=== PATIENT | female | born 1970 | race Caucasian/White ===

== ENCOUNTER → 2017-04-09 | Outpatient (CLI) | payer BC ==
[~2017-04-09] MED LIST: DCS100C PO; FRS325T PO; HYDR1TAB75 PO; IBP800T PO; LORA0.5T PO; MDR10T PO; SPRINTEC PO
== END ==
LOC: RAD 13:46
PROVIDERS: ATTEND Nurse Practitioner Family
DX: Z12.31 Encounter for screening mammogram for malignant neoplasm of breast (principal)
CPT/HCPCS: 77067

== ENCOUNTER → 2017-04-19 | Outpatient (CLI) | payer BC ==
--- NOTE | 2017-04-19 09:13 | Diagnostic Imaging Report ---
PROCEDURE: MRI right joint lower extremity without contrast. TECHNIQUE: Multiplanar, multisequence non contrast-enhanced MRI of the right lower extremity was accomplished. INDICATION: Right knee pain. FINDINGS: There is a small joint effusion. There is some fluid signal along the superficial infrapatellar bursa could relate to mild bursitis. The extensor mechanism appears intact. The ACL demonstrates mild thickening superiorly probably sequela of an old tear. No full-thickness or retracted tear. The PCL is intact. There is a complex tear involving the body of the medial meniscus extending to the posterior horn. There is a gap in the meniscus material along the body of the meniscus measuring 4 mm from the fibers retraction. The lateral meniscus appears intact. There is a suggestion of loose bodies seen in the posterior aspect of the knee joint up to 5 mm in size. This is located along the posterior medial aspect of the PCL of the joint line level. The MCL and the lateral collateral ligament complex appear intact. There is no significant marrow signal abnormality. There is generalized mild cartilage thinning in the medial compartment less than 50%. The cartilage in the lateral compartment appears intact. There is a significant cartilage thinning in the lower central aspect of the patella with an area measuring 1.5 cm craniocaudally and 0.6 cm transverse dimension with nearly complete loss of cartilage. There is a small Stanley's cyst. IMPRESSION: 1. There is a significant cartilage thinning and cartilage loss in the central lower aspect of the patella. This could be at least in part secondary to old injury. 2. There are loose bodies up to 5 mm in size abutting the posterior medial aspect of the PCL insertion. 3. Complex medial meniscus tear. Dictated by: Dictated on workstation # [id number]
== END ==
LOC: RAD 07:45
PROVIDERS: ATTEND Nurse Practitioner
DX: S83.231A Complex tear of medial meniscus, current injury, right knee, initial encounter (principal); M71.21 Synovial cyst of popliteal space [Baker], right knee; M23.41 Loose body in knee, right knee; X58.XXXA Exposure to other specified factors, initial encounter; Y99.8 Other external cause status
CPT/HCPCS: 73721

== ENCOUNTER → 2018-04-04 | Outpatient (CLI) | payer BC ==
--- NOTE | 2018-04-04 12:35 | Diagnostic Imaging Report ---
EXAMINATION: MRI left foot without contrast. DATE: April 04, 2018. INDICATION: 47-year-old female, lateral left foot pain. COMPARISON: None. TECHNIQUE: Multiple noncontrast MRI sequences of the left foot were obtained. FINDINGS: The visualized portions of the peroneal tendons are intact. Visualized portions of the posterior flexor tendons are intact. The visualized anterior extensor tendons are intact. There is a ganglion cyst near the distal tibialis anterior tendon measuring approximately 11 x 6 x 10 mm in size. The Lisfranc ligament proper is intact. The visualized portions of the plantar fascia are intact. There is no joint effusion. The bone marrow signal is unremarkable. Specifically, there is no acute fracture, bone contusion, stress reaction, or evidence of osteonecrosis. There is nonspecific lateral and dorsal subcutaneous edema along the length of the fifth metatarsal and fifth digit phalanges. There is no focal fluid collection. IMPRESSION: 1. Nonspecific dorsal and lateral subcutaneous edema along the length of the fifth digit phalanges and fifth metatarsal which is in the region of the marker denoting area of focal patient concern. No well marginated focal fluid collection. 2. No acute fracture, bone contusion, or evidence of stress reaction. 3. Intact visualized tendons. 4. Ganglion cyst near the distal anterior tibialis tendon measuring 11 x 6 x 10 mm in size. 5. No joint effusion. Dictated by: Dictated on workstation # [id number]
== END ==
LOC: RAD 09:19
PROVIDERS: ATTEND Podiatrist
DX: S92.352A Displaced fracture of fifth metatarsal bone, left foot, initial encounter for closed fracture (principal); M67.472 Ganglion, left ankle and foot; R60.0 Localized edema

== ENCOUNTER → 2018-04-18 | Outpatient (CLI) | payer BC ==
--- NOTE | 2018-04-18 09:22 | Diagnostic Imaging Report ---
Indication: Routine screening. Comparison is made with prior exam from 04/09/2017 and 05/08/2014. 2-D and 3-D bilateral screening mammography was performed with CAD. Scattered fibronodular densities are identified bilaterally. The parenchymal pattern is stable. No dominant mass or malignant appearing microcalcifications are seen. Axillae are unremarkable. Impression: BI-RADS category one No mammographic features suspicious for malignancy are identified. ACR BI-RADS Category 1: Negative. Result letter will be mailed to the patient. Note: At least 10% of breast cancer is not imaged by mammography. Dictated by: Dictated on workstation # [id number]
== END ==
LOC: RAD 07:38
PROVIDERS: ATTEND Nurse Practitioner Primary Care
DX: Z12.31 Encounter for screening mammogram for malignant neoplasm of breast (principal)
CPT/HCPCS: 77067

== ENCOUNTER 2018-12-22 08:44 | Outpatient (CLI) | payer BC ==
[~2018-12-22] VITALS: Ht 160 cm; Wt 81.6 kg
== END 2018-12-22 10:15 | disposition home or self-care (01) ==
LOC: PREOP 08:44
PROVIDERS: ATTEND Surgery
DX: Z01.818 Encounter for other preprocedural examination (principal)

== ENCOUNTER 2018-12-30 10:57 | Day surgery (SDC) | payer BC ==
[~2018-12-30] VITALS: Ht 160 cm; Wt 81.6 kg
[2018-12-30] MEDS ORDERED: NS IV 500 ML 500 ML ONE (11:00)
[2018-12-30] MEDS ORDERED: MIDAZOLAM 2 MG/2 ML (VERSED) VIAL ONE ×5 (11:24)
[2018-12-30] MEDS ORDERED: fentaNYL INJECTION 100 MCG/2 ML AMP ONE ×2 (11:24)
[2018-12-30] MEDS ORDERED: LIDOCAINE JELLY 2% 6 ML SYRINGE ONE (11:25)
[2018-12-30] MEDS ORDERED: NS IV 500 ML 500 ML IV PRN (11:36)
[2018-12-30 11:43] VITALS: BP 116/74
[2018-12-30] MEDS ORDERED: LIDOCAINE JELLY 2% 6 ML SYRINGE MM PRN (11:45)
[2018-12-30] MEDS ORDERED: fentaNYL INJECTION 100 MCG/2 ML AMP IVP ONE (11:45)
[2018-12-30] MEDS ORDERED: MIDAZOLAM 2 MG/2 ML (VERSED) VIAL IVP ONE (11:45)
--- NOTE | 2018-12-30 13:29 | Conscious Sedation/ASA ---
Conscious Sedation Pre-Proced Time 11:00 ASA Score 1 For ASA 3 and 4: Consider anesthesia and medical clearance. Also, for patients with a history of failed moderate sedation consider anesthesia. Airway Lungs Heart ASA score ASA 1: a normal healthy patient ASA 2: a patient with a mild systemic disease (mid diabetes, controlled hypertension, obesity ASA 3: a patient with a severe systemic disease that limits activity (angina , COPD, prior Myocardial infarction) ASA 4: a patient with an incapacitating disease that is a constant threat to life (CHF, renal failure) ASA 5: a moribund patient not expected to survive 24 hrs. (ruptured aneurysm) ASA 6: a declared brain- patient whose organs are being harvested. For emergent operations, add the letter E after the classification Mallampati Classification Grade 3 Sedation Plan Analgesia, Amnesia, Plan communicated to team members, Discussed options with patient/fam, Discussed risks with patient/fam The patient is an appropriate candidate to undergo the planned procedure, sedation, and anesthesia. The patient immediately re-assessed prior to indication. EDIS OSEGUERA MD Dec 30, 2018 13:29
[2018-12-30 13:30] VITALS: BP 108/52
--- NOTE | 2018-12-30 13:30 | Progress Note-Pre Operative ---
Pre-Operative Progress Note H&P Reviewed The H&P was reviewed, patient examined and no changes noted. Date Seen by Provider: Dec 30, 2018 Time Seen by Provider: 11:00 Date H&P Reviewed: Dec 30, 2018 Time H&P Reviewed: 11:00 Pre-Operative Diagnosis: rectal bleeding, anal pain EDIS OSEGUERA MD Dec 30, 2018 13:30
--- NOTE | 2018-12-30 13:32 | Progress Note-Post Operative ---
Post-Operative Progess Note Surgeon (s)/Industrial Technology Teacher (s) Surgeon EDIS OSEGUERA MD Industrial Technology Teacher: none Pre-Operative Diagnosis rectal bleeding, anal pain Post-Operative Diagnosis chronic stage 3 ext, stage 2 int hemorrhoids, sentinel pile with chronic post anal fissure. small rectal polyp Procedure & Operative Findings Date of Procedure 12/30/18 Procedure Performed/Findings Colonoscopy with bx. Anesthesia Type CS Estimated Blood Loss Estimated blood loss (mL): minimal Specimens/Packing Specimens Removed rectal polyp EDIS OSEGUERA MD Dec 30, 2018 13:32
[2018-12-30] MEDS ORDERED: NITR1OIN TD (13:33)
--- NOTE | 2018-12-30 13:34 | Discharge Inst-Surgical ---
D/C Lap Instructions-OUMAR Follow Up PRN Activity as tolerated sitz bath after every BM High Fiber Diet 25g or more per day Avoid Alcohol, Caffeine, Spicy [place] and Acid foods. Drink 64 fluid oz or more of fluids per day. Symptoms to Report: Fever over 101 degree F, Nausea/Vomiting If any problems/questions: Contact your physician or go to Emergency Room EDIS OSEGUERA MD Dec 30, 2018 13:34
[2018-12-30 14:00] VITALS: BP 114/72
--- NOTE | 2018-12-30 14:02 | OPERATIVE REPORT ---
DATE OF SERVICE: 12/30/2018 ATTENDING PRIMARY DENTAL TECHNOLOGIST: [facility]. PREOPERATIVE DIAGNOSES: Rectal bleeding. Small lesion of the rectum which may be a benign hyperplastic polyp or a lymphoid aggregate. POSTOPERATIVE DIAGNOSES: Chronic stage III external hemorrhoids, stage II internal hemorrhoids. [place] pile as well as a chronic anal fissure. PROCEDURE: Colonoscopy with biopsy. SURGEON: Edis Oseguera MD ANESTHESIA: Conscious sedation. ESTIMATED BLOOD LOSS: Minimal. FINDINGS: Chronic stage III external hemorrhoids, sentinel pile, chronic posterior anal fissure, chronic stage II internal hemorrhoids, small lymphoid aggregate versus hyperplastic polyp of the rectum. The remainder of the colon was normal. DISPOSITION: The patient tolerated the procedure well. DESCRIPTION OF PROCEDURE: The patient is a 48-year-old female who has had episodes of rectal bleeding on an intermittent basis. She does not report any red blood per rectum or any dark tarry stools. She did have a colonoscopy approximately 5 years ago and believes this to be normal. She does report that she does have pain upon defecation as well. She reports that she has had a history of a fissure in the past as well. The patient was brought to the endoscopy suite, laid in the left lateral decubitus position. After adequate IV pain and sedative medications and conscious sedation anesthesia, a digital rectal examination was performed. There were chronic stage III external hemorrhoids as well as stage II internal hemorrhoids. There was a sentinel pile in the posterior aspect of the anus as well as a palpable cord of scar tissue consistent with a chronic fissure. There was also tenderness elicited upon the rectal examination. No palpable masses. The endoscope was then intubated into the anus and rectum and gently insufflated. The endoscope was then advanced to the valves of Kruger in the rectum with no polyps or neoplasms identified. We then proceeded with sigmoid colon, where no diverticulosis identified. The endoscope was then advanced to the remainder of the descending, transverse, ascending colon and the cecum. These segments were normal. A small polyp versus a lymphoid aggregate was identified at the rectum, which was very small approximately 1 to 2 mm in size. This was biopsied using biopsy forceps with electrocautery with visualization of good hemostasis. The endoscope was withdrawn while suctioning residual and there were no additional findings. The patient tolerated the procedure well. We will recommend medical management with a high fiber diet with least 30 grams of fiber per day as well as significant amounts of water daily to promote soft stools daily as well as Sitz baths after the bowel movement. We will also proceed with a trial of nitroglycerin paste as a smooth muscle relaxant to decrease the anal sphincter tone which may help with the discomfort of the chronic fissure. Job ID: [id number] DocumentID: [id number] Dictated Date: 12/30/2018 13:23:40 [employer] Date: 12/30/2018 14:01:32 Dictated By: EDIS OSEGUERA MD MTDD
[2018-12-30 14:16] VITALS: BP 114/72
== END 2018-12-30 14:05 | disposition home or self-care (01) ==
LOC: ENDO 10:57
PROVIDERS: ATTEND Surgery
DX: K64.2 Third degree hemorrhoids (principal); K60.1 Chronic anal fissure; K62.1 Rectal polyp

== ENCOUNTER → 2019-04-28 | Outpatient (CLI) | payer BC ==
[~2019-04-28] MED LIST changes: +NITR1OIN TD
--- NOTE | 2019-04-28 19:16 | Diagnostic Imaging Report ---
INDICATION: Routine screening. Comparison is made with prior mammograms from 04/18/2018 and 04/09/2017. 2-D and 3-D bilateral screening mammography was performed. The current study was also evaluated with a Computer Aided Detection (CAD) system. 3-D tomosynthesis was also performed and reviewed. FINDINGS: Scattered fibroglandular densities are identified bilaterally. No spiculated mass or malignant-appearing microcalcifications are seen. The axillae are unremarkable. IMPRESSION: No mammographic features suspicious for malignancy are identified. ACR BI-RADS Category 1: Negative. Result letter will be mailed to the patient. Note: At least 10% of breast cancer is not imaged by mammography. Dictated by: Dictated on workstation # [id number]
== END ==
LOC: RAD 08:19
PROVIDERS: ATTEND Nurse Practitioner Primary Care
DX: Z12.31 Encounter for screening mammogram for malignant neoplasm of breast (principal)
CPT/HCPCS: 77067

== ENCOUNTER → 2020-04-29 | Outpatient (CLI) | payer BC ==
--- NOTE | 2020-04-30 12:24 | Diagnostic Imaging Report ---
INDICATION: Routine screening. Comparison is made with prior mammogram 04/28/2019 and 04/18/2018. 2-D and 3-D bilateral screening mammography was performed with CAD. Both breasts remain heterogeneously dense, limiting the sensitivity of mammography. Circumscribed nodules in the right breast are noted and consistent with benign etiologies. No spiculated mass is identified. No malignant appearing microcalcifications are seen. Axillae are unremarkable. IMPRESSION: BI-RADS Category 2 No mammographic features suspicious for malignancy are identified. ACR BI-RADS Category 2: Benign findings. Result letter will be mailed to the patient. Note: At least 10% of breast cancer is not imaged by mammography. Dictated by: Dictated on workstation # [id number]
== END ==
LOC: RAD 15:11
PROVIDERS: ATTEND Physician Assistant
DX: Z12.31 Encounter for screening mammogram for malignant neoplasm of breast (principal)
CPT/HCPCS: 77063; 77067

== ENCOUNTER 2020-09-27 15:41 | Outpatient (CLI) | payer BC | END 2020-09-27 16:18 | disposition home or self-care (01) | LOC: SLEEP 15:41 | PROVIDERS: ATTEND Otolaryngology Otolaryngology/Facial Plastic Surgery | DX: G47.33 Obstructive sleep apnea (adult) (pediatric) (principal); G47.10 Hypersomnia, unspecified ==

== ENCOUNTER 2021-03-20 07:51 | Outpatient (CLI) | payer BC ==
[2021-03-20] VITALS (7 sets, daily range): BP systolic 104–120; BP diastolic 49–63
[~2021-03-20] VITALS: Ht 160 cm; Wt 84.1 kg
[2021-03-20] MEDS ORDERED: NS IV 1000 ML 1,000 ML IV SCH (08:30)
[2021-03-20 08:56] LABS: HEMOGLOBIN 6.6 g/dL (11.5-16.0)
== END 2021-03-20 14:15 | disposition home or self-care (01) ==
LOC: SDC 07:51
PROVIDERS: ATTEND Physician Assistant
DX: D50.0 Iron deficiency anemia secondary to blood loss (chronic) (principal)
CPT/HCPCS: 36430; 85014; 85018; 86850; 86900; 86901; 86920; P9016; 36415

== ENCOUNTER 2021-04-02 12:23 | Outpatient (CLI) | payer BC ==
[~2021-04-02] VITALS: Ht 160 cm; Wt 84.1 kg
[2021-04-02] MEDS ORDERED: FERR-84 PO (12:47)
[2021-04-02] MEDS ORDERED: METH-336 PO (12:47)
[2021-04-02] MEDS ORDERED: ASCO500C17 PO (12:47)
[2021-04-02] MEDS ORDERED: DOCU100T7 PO (12:47)
[2021-04-02] MEDS ORDERED: CHRM1TAB PO (12:47)
[2021-04-02] MEDS ORDERED: MULT-141 PO (12:47)
[2021-04-03] MEDS ORDERED: HYDR-3817 PO (12:42)
== END 2021-04-02 13:33 ==
LOC: PREOP 12:23
PROVIDERS: ATTEND Surgery
DX: Z01.812 Encounter for preprocedural laboratory examination (principal); D64.9 Anemia, unspecified; K62.5 Hemorrhage of anus and rectum; K64.9 Unspecified hemorrhoids; Z20.822 Contact with and (suspected) exposure to COVID-19
CPT/HCPCS: 87635

== ENCOUNTER 2021-04-03 12:17 | Day surgery (SDC) | payer BC ==
--- NOTE | 2021-04-02 13:22 | HISTORY AND PHYSICAL ---
DATE OF SERVICE: DATE OF ADMISSION: 04/03/2021 ATTENDING BENZENE WORKER: ALFREDO Berg HISTORY OF PRESENT ILLNESS: The patient is a 50-year-old female known to us. She has had a longstanding history of hemorrhoids as well as rectal bleeding. We had done a colonoscopy on her in 12/2018 and she was found to have stage III external hemorrhoids as well as stage II internal hemorrhoids as well as sentinel pile and a chronic anal fissure at that time. On today's office visit, she reports that she was found to be extremely anemic with a hemoglobin of 6.6 and was given 2 units of packed red blood cells. She again reports that she notices rectal bleeding with every bowel movement and does feel inflamed hemorrhoidal cushions. She has not had an upper endoscopy before in the past and she would like to expedite the process due to other procedures scheduled this year. We will proceed with anal exam under anesthesia as well as possible hemorrhoidectomy as well as an EGD and colonoscopy under the same anesthesia. PAST MEDICAL HISTORY: Hemorrhoids. PAST SURGICAL HISTORY: Partial hysterectomy, D and C x3; section x3, 1995, 1999, ; hemorrhoidectomy x2, left carpal tunnel release, right knee arthroscopy in 2016. ALLERGIES: No known drug allergies. MEDICATIONS: None. SOCIAL HISTORY: Negative smoke, negative alcohol. FAMILY HISTORY: Paternal grandmother, colon cancer. VITAL SIGNS: Stable. Blood pressure 135/64. Current weight 180 pounds at 5 feet 3 inches. REVIEW OF SYSTEMS: Well-nourished female, in no acute distress. She is not experiencing any shortness of breath or difficulty breathing. No chest pain, palpitations, diaphoresis. No nausea, vomiting, no diarrhea, constipation with intermittent episodes of bright red blood, usually with almost every bowel movement. She states that this has been going on for years. She has incorporated the stool softener states that her stools lately have been softer. No fever, chills, no recent inadvertent weight loss. All other review of systems negative. PHYSICAL EXAMINATION: CHEST: Clear. Good breath sounds bilaterally. HEART: Regular, no murmurs. EXTREMITIES: No lower extremity edema, negative Homans sign. HEENT: No scleral icterus. NECK: No cervical lymphadenopathy. ABDOMEN: Soft, nontender, nondistended. SKIN: Warm, dry. ASSESSMENT AND PLAN: A 50-year-old female with rectal bleeding and symptomatic anemia. We will schedule her for an anal exam under anesthesia. EGD and colonoscopy as well as possible hemorrhoidectomy and/or fissurectomy. Job ID: [id number] DocumentID: [id number] Dictated Date: 04/01/2021 16:00:04 Asphalt Coater Date: 04/01/2021 16:34:53 Dictated By: EDIS OSEGUERA MD
[~2021-04-03] VITALS: Ht 160 cm; Wt 84.1 kg
[2021-04-03] VITALS (8 sets, daily range): BP systolic 102–138; BP diastolic 48–82
[~2021-04-03 12:17] MED LIST changes: +ASCO500C17 PO; +CHRM1TAB PO; +DOCU100T7 PO; +FERR-84 PO; +METH-336 PO; +MULT-141 PO
--- NOTE | 2021-04-03 12:40 | Progress Note-Pre Operative ---
Pre-Operative Progress Note H&P Reviewed The H&P was reviewed, patient examined and no changes noted. Date Seen by Provider: Apr 03, 2021 Time Seen by Provider: 12:00 Date H&P Reviewed: Apr 03, 2021 Time H&P Reviewed: 12:00 Pre-Operative Diagnosis: persistent rectal bleed, hemorrhoids EDIS OSEGUERA MD Apr 03, 2021 12:40
[2021-04-03] MEDS ORDERED: HYDR-3817 PO (12:42)
--- NOTE | 2021-04-03 12:43 | Discharge Inst-Surgical ---
D/C Lap Instructions-OUMAR New, Converted, or Re-Newed RX: RX on Chart Follow Up Appt in 2 weeks Activity as tolerated No driving for 24 hours No driving while on pain medications Sitz bath QID and after every bowel movement. Regular Diet Symptoms to Report: Fever over 101 degree F, Nausea/Vomiting Infection Signs and Symptoms to report: Increased redness, Foul odor of wound, Increased drainage Bathing instructions: May shower Operative Area Clean/Dry; Keep incision clean/dry If any problems/questions: Contact your physician or go to Emergency Room EDIS OSEGUERA MD Apr 03, 2021 12:43
[2021-04-03] MEDS ORDERED: ceFAZolin 2 GM IV Premixed 50 ML IV ONE (12:45)
[2021-04-03] MEDS ORDERED: oxyCODONE/APAP 5/325MG (PERCOCET 5) TABLET PO PRN (12:45)
[2021-04-03] MEDS ORDERED: ONDANSETRON 4 MG/2 ML (SDV) Z0FRAN IVP PRN ×2 (12:45→16:00)
[2021-04-03] MEDS ORDERED: ACETAMINOPHEN 325 MG TABLET PO PRN (12:45)
[2021-04-03] MEDS ORDERED: morphine INJ 10 MG/ML 1ML (SYR OR VIAL) IVP PRN ×2 (12:45)
[2021-04-03] MEDS: LACTATED RINGERS 1,000 ML IV PRN ×2 (12:54→16:25)
[2021-04-03] MEDS ORDERED: ceFAZolin 2 GM IV Premixed 50 ML ONE (13:16)
[2021-04-03] MEDS ORDERED: MIDAZOLAM 2 MG/2 ML (VERSED) VIAL IVP ONE (13:30)
[2021-04-03] MEDS ORDERED: MIDAZOLAM 2 MG/2 ML (VERSED) VIAL ONE ×2 (13:33→14:53)
[2021-04-03] MEDS ORDERED: ONDANSETRON 4 MG/2 ML (SDV) Z0FRAN ONE (14:53)
[2021-04-03] MEDS ORDERED: fentaNYL INJ 100 MCG/2 ML AMP ONE (14:53)
[2021-04-03] MEDS ORDERED: proPOfol 200 MG/20 ML (DIPRIVAN) VIAL IV ONE (14:53)
[2021-04-03] MEDS ORDERED: LIDOCAINE/EPI 1%-1:100,000 (XYLOCAINE) 20ML ONE (14:57)
[2021-04-03] MEDS ORDERED: morphine INJ 10 MG/ML 1ML (SYR OR VIAL) IVP ONE (16:00)
[2021-04-03] MEDS ORDERED: HYDROmorphone 2 MG/ML VIAL (DILAUDID) IV ONE (16:00)
[2021-04-03] MEDS ORDERED: SEVOFLURANE (ULTANE) 15 ML INHAL SOLN ONE (17:23)
--- NOTE | 2021-04-03 17:53 | Progress Note-Post Operative ---
Post-Operative Progess Note Surgeon (s)/Jack Setter (s) Surgeon EDIS OSEGUERA MD Jack Setter: none Pre-Operative Diagnosis persistent rectal bleed, hemorrhoids Post-Operative Diagnosis reflux esophagitis(stage 2), small HH(2cm), mild gastritis. stage 4 ext and int hemorrhoids. Procedure & Operative Findings Date of Procedure 04/03/21 Procedure Performed/Findings EGD with bx. Colonoscopy. [place] closed hemorrhoidectomy. Anesthesia Type general LMA Estimated Blood Loss Estimated blood loss (mL): minimal Specimens/Packing Specimens Removed hemorrhoidal cusion x3 EDIS OSEGUERA MD Apr 03, 2021 17:52
--- NOTE | 2021-04-03 18:09 | Anesthesia-General Post-Op ---
General Patient Condition Mental Status/LOC: Same as Preop Cardiovascular: Satisfactory Nausea/Vomiting: Absent Respiratory: Satisfactory Pain: Controlled Complications: Absent Post Op Complications Complications None Follow Up Care/Instructions Patient Instructions None needed. Anesthesia/Patient Condition Patient Condition Patient is doing well, no complaints, stable vital signs, no apparent adverse anesthesia problems. No complications reported per nursing. ALLIE CHÁVEZ CRNA Apr 03, 2021 18:09
--- NOTE | 2021-04-03 20:33 | OPERATIVE REPORT ---
DATE OF SERVICE: 04/03/2021 ATTENDING CHIEF MEDICAL TECHNOLOGIST: ALFREDO Berg PREOPERATIVE DIAGNOSES: Rectal bleeding, anemia, history of hemorrhoids. POSTOPERATIVE DIAGNOSES: Reflux esophagitis stage II, small hiatal hernia 2 cm in size, mild gastritis, stage IV external and internal hemorrhoids. PROCEDURES: Pudendal nerve block. Segura closed hemorrhoidectomy. EGD with biopsy, colonoscopy. SURGEON: Edis Damon MD ULTRASONIC SOLDERER: Laverne Merlos APRN. ANESTHESIA: General laryngeal mask airway. ESTIMATED BLOOD LOSS: Minimal. FINDINGS: Reflux esophagitis stage II, small hiatal hernia 2 cm in size, mild gastritis, stage IV external and internal hemorrhoids. DISPOSITION: The patient tolerated the procedure well. INDICATIONS: The patient is a 50-year-old female known to us. She has a longstanding history of hemorrhoids as well as rectal bleeding. We had done a colonoscopy on her on 01/06/2021 and was found to have stage III external and internal hemorrhoids as well as a sentinel pile and chronic anal fissure at that time. She was found to be extremely anemic and fatigue with a hemoglobin of 6.6 and was given two units of packed red blood cells. She reports again she notices rectal bleeding every time she has a bowel movement and does feel swollen, inflamed, hemorrhoidal cushions. She has not had an upper endoscopy before in the past. DESCRIPTION OF PROCEDURE: The patient was brought to the operating room, laid supine on the table. After adequate IV pain and sedative medications and general laryngeal mask airway intubation, the patient was placed in lithotomy position. We first proceeded with an EGD and the endoscope was placed in the mouth, visualizing the pharynx and hypopharyngeal region. Vocal cords, epiglottis and vallecula identified and appeared to be normal. The endoscope was then gently intubated at the esophageal opening and esophagus insufflated. The endoscope was then advanced to the first, second and third portion of the esophagus at the level of GE junction, a reflux esophagitis stage II identified. No ulcers or strictures identified in this region. A biopsy was taken with forceps with visualization of good hemostasis. The endoscope was then advanced into the stomach and endoscope retroflexed, visualizing a small hiatal hernia approximately 2 cm in size. There was a mild gastritis. No formal ulcerations, polyps, or any neoplasms as well as no active bleeding sources. A biopsy was taken of the stomach antrum to rule out H. pylori with visualization of good hemostasis. The endoscope was then advanced to the pylorus and the first and second portion of the duodenum, which appeared normal with no ulcerations or any active bleeding sources. The endoscope was then slowly withdrawn while taking a second look and suctioning of residual air with no additional findings. A digital rectal examination was performed, which revealed stage IV external and internal hemorrhoid cushions in continuity. These were also easily friable and would bleed just upon manipulation. Normal sphincter tone was felt and there were no palpable masses. The endoscope was then intubated to the anus and rectum gently insufflated. The endoscope was then advanced to the valves of Kruger of the rectum with no polyps or any neoplasms identified. Through the sigmoid colon, no diverticulosis identified. The endoscope was then advanced to the remainder of the descending, transverse and ascending colon to the cecum. These segments were normal. There were no polyps or any neoplasms identified throughout the colon or rectum as well as no active bleeding sources besides the hemorrhoids. We then proceeded with a pudendal nerve block and allowed the external and internal anal sphincters to relax and speculum placed. All three major hemorrhoidal cushions were inflamed. It was decided to proceed with Segura closed hemorrhoidectomy in all three hemorrhoidal cushions. We first proceeded with the left lateral hemorrhoidal cushion. A stay suture was placed deep within the anal canal mucosa with a 2-0 Vicryl suture. We then proceeded with excision of the external and internal hemorrhoidal cushion in continuity using a Sonicision. The suture was then used to close the mucosa as well as the anoderm in a running fashion with visualization of good hemostasis. The right lateral as well as more anterior hemorrhoidal cushions were then excised and sutured in a similar manner with visualization of good hemostasis. Gelfoam covered in Surgicel was then placed into the anal canal as a hemostatic plug. This will come with her first bowel movement. The patient tolerated the procedure well. We will have her continue with stool softeners as well as a high fiber diet to promote soft stools on a daily basis. She will also need to proceed with Sitz baths 4 times a day as well as after every bowel movement and to apply dressing within the perianal region to absorb drainage. We will have her followup in approximately 1 week. Raghav ID: [id number] DocumentID: [id number] Dictated Date: 04/03/2021 18:03:13 Warp Picker Date: 04/03/2021 20:32:41 Dictated By: EDIS DAMON MD [facility]
== END 2021-04-03 19:30 | disposition home or self-care (01) ==
LOC: SDC 12:17
PROVIDERS: ATTEND Surgery
DX: K64.3 Fourth degree hemorrhoids (principal); K21.00 Gastro-esophageal reflux disease with esophagitis, without bleeding; K29.50 Unspecified chronic gastritis without bleeding; D50.0 Iron deficiency anemia secondary to blood loss (chronic); K44.9 Diaphragmatic hernia without obstruction or gangrene; K60.1 Chronic anal fissure; F41.9 Anxiety disorder, unspecified; Z86.73 Personal history of transient ischemic attack (TIA), and cerebral infarction without residual deficits; Z79.899 Other long term (current) drug therapy; Z98.890 Other specified postprocedural states
CPT/HCPCS: 87081; 88304; 88305; 88342

== ENCOUNTER 2021-04-03 23:47 | Emergency (ER) | payer BC ==
[~2021-04-03] VITALS: Ht 160 cm; Wt 84.1 kg
[~2021-04-03 23:47] MED LIST changes: +HYDR-3817 PO
[2021-04-03 23:57] VITALS: BP 138/104
[2021-04-04] MEDS ORDERED: KETOROLAC 60 MG/2 ML VIAL IM STA (00:08)
--- NOTE | 2021-04-04 00:11 | ED GI ---
General Chief Complaint: Rect Problems Stated Complaint: RECTUM PAIN Nursing Triage Note: rectal pain s/p hemmorrhoidectomy 1500 04/03/21. reports last dose hydrocodone approx 1700 Source of Information: Patient History of Present Illness Date Seen by Provider: Apr 03, 2021 Time Seen by Provider: 23:59 Initial Comments PT ARRIVES VIA POV FROM HOME PT HAD EGD, COLONOSCOPY AND HEMORRHOIDECTOMY DONE THIS AFTERNOON BY DR. OSEGUERA PT C/O RECTAL PAIN STATES SHE HAS BEEN PRESCRIBED HYDROCODONE--HAS ONLY TAKEN ONE PILL, AT 1700 TODAY PT ALSO REPORTS SHE HAS LIDOCAINE JELLY, BUT ONLY USED ONCE --SEVERAL HOURS AGO, AND PUT ONLY A SMALL AMOUNT ON HER FINGERTIP PT HAS ALSO BEEN ADVISED TO TAKE STOOL SOFTENER 3 PILLS TWICE A DAY, BUT SHE HAS NOT TAKEN ANY TODAY HAS NOT HAD BM SINCE SURGERY NO FEVER NO BLEEDING STATES THIS IS THE 3RD TIME SHE HAS HAD A HEMORRHOIDECTOMY, BUT DOES NOT THINK HER PRIOR SURGERIES WERE THIS PAINFUL AFTERWARD PCP: [facility] [place] SURGEON: DR. OSEGUERA Allergies and Home Medications Allergies Coded Allergies: No Known Drug Allergies (Unverified , 05/07/10) Home Medications Ascorbic Acid 500 Mg Capsule, 500 MG PO DAILY, (Reported) Maritza/Barb/Dr Wolff-Org Peel/Gr T 1 Each Tablet, 1 EACH PO DAILY, (Reported) Docusate Sodium 100 Mg Tablet, 100 MG PO DAILY, (Reported) Ferrous Sulfate 325 Mg Tablet, 325 MG PO DAILY, (Reported) Hydrocodone/Acetaminophen 1 Each Tablet, 1 EACH PO Q4H Prescribed by: EDIS OSEGUERA on 04/03/21 1242 Methylcellulose 500 Mg Tablet, 500 MG PO DAILY, (Reported) Multivit with Calcium,Iron,Min 1 Each Tablet, 1 EACH PO DAILY, (Reported) Patient Home Medication List Home Medication List Reviewed: Yes Review of Systems Review of Systems Constitutional: no symptoms reported Gastrointestinal: See HPI; Denies Abdominal Pain, Denies Nausea, Denies Vomiting Past Ljtidtp-Vcubjt-Wintlh Hx Patient Social History Tobacco Use?: No Use of E-Cig and/or Vaping dev: No Substance use?: No Alcohol Use?: No Pt feels they are or have been: No Seasonal Allergies Seasonal Allergies: No Past Medical History Surgery/Hospitalization HX: EGD/COLONOSCOPY AND HEMORRHOIDECTOMY 04/03/[address] KIDO HEMORRHOIDECTOMY X 3 TOTAL APPENDECTOMY HYSTERECTOMY--OVARIES INTACT D&C X 4 X 3 BILATERAL CARPAL TUNNEL RIGHT KNEE SCOPE 2017 Surgeries: Yes (16 SURGERIES TOTAL. D&C X 4. HEMORRHOIDECTOMY X 2, COLONOSCOPY) Appendectomy, Section, Hysterectomy, Orthopedic, Rectal Respiratory: No Cardiac: No Neurological: No Reproductive Disorders: Yes [employer] History: Hysterectomy Sexually Transmitted Disease: No Genitourinary: No Gastrointestinal: Yes (rectal bleeding) Hemorrhoids Musculoskeletal: Yes (HX TORRES'S CYST; CARPAL TUNNEL SURGERIES) Endocrine: No HEENT: No Cancer: No Psychosocial: Yes Anxiety Integumentary: No Blood Disorders: Yes (ANEMIA) Adverse Reaction/Blood Tranf: No Family Medical History Seizures Physical Exam Vital Signs Vital Signs - First Documented 04/03/21 23:57 Temp 36.2 Pulse 74 Resp 20 B/P (MAP) 138/104 (115) Pulse Ox 95 O2 Delivery Room Air Capillary Refill : Less Than 3 Seconds Height/Weight/BMI Height: 5'3.00" Weight: 180lbs. 0.0oz. 81.674158fv; 32.00 BMI Method:Estimated General Appearance: WD/WN, other (ANXIOUS, PACING, LEANING ACROSS ER CART) Gastrointestinal: non tender, soft Rectal: other (NORMAL POST-OP APPEARANCE OF ANAL AREA, WITH MILD TO MODERATE SWELLING AND ERYTHEMA. SUTURE SITES APPEAR INTACT. NO DRAINAGE. NO BLEEDING. ) Progress/Results/Core Measures Results/Orders My Orders Orders - JODY RIGGINS DO Ketorolac Injection (Toradol Injection) (04/04/21 00:08) Vital Signs/I&O 04/03/21 23:57 Temp 36.2 Pulse 74 Resp 20 B/P (MAP) 138/104 (115) Pulse Ox 95 O2 Delivery Room Air Blood Pressure Mean: 115 Progress Progress Note : Progress Note ENCOURAGED PT TO TAKE HYDROCODONE EVERY 4 HOURS FOR PAIN ENCOURAGED HER TO BECOME MORE LIBERAL WITH HER USE OF LIDOCAINE JELLY ALSO ENCOURAGED HER TO INCREASE HER FLUIDS, WELL TAKE HER STOOL SOFTENERS PRESCRIBED GAVE SHOT OF TORADOL FOR PAIN Departure Impression Primary Impression: POST HEMORRHOIDECTOMY RECTAL PAIN Disposition: 01 HOME, SELF-CARE Condition: Stable Departure-Patient Inst. Decision time for Depature: 00:09 Referrals: [facility] (PCP) Primary Care Physician JAN JACKSON (Family) Primary Care Physician EDIS OSEGUERA MD Patient Instructions: Hemorrhoidectomy (DC), Postoperative Pain (DC) Add. Discharge Instructions: TAKE YOUR HYDROCODONE EVERY 4 HOURS NEEDED FOR PAIN GENEROUSLY USE LIDOCAINE TO RECTAL AREA EVERY 2-3 HOURS NEEDED FOR PAIN TAKE STOOL SOFTENERS 3 PILLS TWICE A DAY ADVISED INCREASE YOUR FLUID INTAKE FOLLOW UP WITH DR. OSEGUERA FOR FURTHER CARE All discharge instructions reviewed with patient and/or family. Voiced understanding. JODY RIGGINS DO Apr 04, 2021 00:11
== END 2021-04-04 00:24 | disposition home or self-care (01) ==
LOC: EDUNIT# 23:47 → ER 23:49
DX: K62.89 Other specified diseases of anus and rectum (principal)
CPT/HCPCS: 99284

== ENCOUNTER 2021-04-09 09:22 | Emergency (ER) | payer BC ==
[~2021-04-09] VITALS: Ht 160 cm; Wt 79.5 kg
--- NOTE | 2021-04-09 10:00 | ED GI ---
General Chief Complaint: Rect Problems Stated Complaint: S/P HEMRRHOID SX, PAIN Source of Information: Patient Exam Limitations: No Limitations History of Present Illness Date Seen by Provider: Apr 09, 2021 Time Seen by Provider: 09:45 Initial Comments Patient to the ER by private conveyance with her mother and chief complaint of rectal pain difficulty passing a bowel movement despite lidocaine ointment and hydrocodone increasing doses. She had a upper and lower endoscopy and hemorrhoidectomy by Dr. Damon 6 days ago. She called his office and he is doing scopes so they texted him but she has not heard back. She has been using sitz bath's 10 times a day passing bowel movements and having some blood in the stoo l. She has had hemorrhoidectomies in the past and states the pain is much worse and lasting longer than in the past. She is not having any nausea vomiting or difficulty eating or drinking. Allergies and Home Medications Allergies Coded Allergies: No Known Drug Allergies (Unverified , 05/07/10) Home Medications Ascorbic Acid 500 Mg Capsule, 500 MG PO DAILY, (Reported) Maritza/Barb/Dr Wolff-Org Peel/Gr T 1 Each Tablet, 1 EACH PO DAILY, (Reported) Docusate Sodium 100 Mg Tablet, 100 MG PO DAILY, (Reported) Ferrous Sulfate 325 Mg Tablet, 325 MG PO DAILY, (Reported) Hydrocodone/Acetaminophen 1 Each Tablet, 1 EACH PO Q4H Prescribed by: EDIS DAMON on 04/03/21 1242 Methylcellulose 500 Mg Tablet, 500 MG PO DAILY, (Reported) Multivit with Calcium,Iron,Min 1 Each Tablet, 1 EACH PO DAILY, (Reported) Patient Home Medication List Home Medication List Reviewed: Yes Review of Systems Review of Systems Constitutional: No chills, No fever EENTM: No Blurred Vision, No Double Vision Respiratory: Denies Cough, Denies Shortness of Air Cardiovascular: Denies Chest Pain, Denies Lightheadedness Gastrointestinal: See HPI; Denies Constipated, Denies Diarrhea Genitourinary: Denies Burning, Denies Discharge All Other Systems Reviewed Negative Unless Noted: Yes Past Cuxmcvq-Tobezi-Rettcg Hx Patient Social History Tobacco Use?: No Use of E-Cig and/or Vaping dev: No Substance use?: No Seasonal Allergies Seasonal Allergies: No Past Medical History Surgery/Hospitalization HX: EGD/COLONOSCOPY AND HEMORRHOIDECTOMY 04/03/[address] DAMON HEMORRHOIDECTOMY X 3 TOTAL APPENDECTOMY HYSTERECTOMY--OVARIES INTACT D&C X 4 X 3 BILATERAL CARPAL TUNNEL RIGHT KNEE SCOPE 2017 Surgeries: Yes (16 SURGERIES TOTAL. D&C X 4. 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 0.0oz. 81.820093tn; 32.00 BMI Method:Estimated General Appearance: WD/WN, moderate distress HEENT: PERRL/EOMI, pharynx normal Neck: full range of motion, normal inspection Respiratory: no respiratory distress, no accessory muscle use Cardiovascular: normal peripheral pulses, regular rate, rhythm Genital/Rectal: other (Breakdown of the sutures from 3 different sites 3:00 9:00 and 6:00 without significant discharge or bleeding. Mildly erythematous and swollen soft tissue very tender to touch.) Extremities: normal inspection, normal capillary refill Neurologic/Psychiatric: alert, oriented x 3, other (Anxious affect) Skin: normal color, warm/dry Progress/Results/Core Measures Results/Orders Vital Signs/I&O 04/09/21 09:36 Pulse 75 Resp 18 B/P (MAP) 116/62 (80) Pulse Ox 100 O2 Delivery Room Air Progress Progress Note #1: Time: 10:05 Progress Note Patient's pain control is not adequate. She is taking 2 of her hydrocodone tablets. On examination she has some evidence of 3 hemorrhoidectomies with some subsequent fissures. Discussed the case with Dr. Damon and he says he will come down to take a look at her in the ER in between cases and probably have to put her out on some more potent pain medicine. He says so far this is expected considering the severity of the hemorrhoids he had cut out. The patient did get a shot of Toradol last night which she said gave some modest relief for about 4 to 6 hours. We will offer her a shot of some Dilaudid to help get her pain under control. Progress Note #2: Time: 11:[address] Damon met with the patient and provided her with a prescription for more potent pain medicine and she has follow-up appointment. She can go home. Departure Impression Primary Impression: Status post hemorrhoidectomy Additional Impression: Inadequate pain control Disposition: 01 HOME, SELF-CARE Condition: Stable Departure-Patient Inst. Decision time for Depature: 11:06 Referrals: [facility] [place] Primary Care Physician JAN JACKSON (Family) Primary Care Physician EDIS DAMON MD Patient Instructions: Hemorrhoidectomy (DC), Opioids for Short-Term Treatment of Pain ED Add. Discharge Instructions: Keep your follow-up appointment with Dr. Damon. All discharge instructions reviewed with patient and/or family. Voiced unde rstanding. JESE GARCIA Apr 09, 2021 10:00
[2021-04-09 11:13] VITALS: BP 116/62
== END 2021-04-09 11:10 | disposition home or self-care (01) ==
LOC: EDUNIT# 09:22 → ER 09:24
DX: Z98.890 Other specified postprocedural states (principal); G89.18 Other acute postprocedural pain
CPT/HCPCS: 99282

== ENCOUNTER → 2021-05-09 | Outpatient (CLI) | payer BC ==
--- NOTE | 2021-05-12 09:04 | Diagnostic Imaging Report ---
INDICATION: Routine screening. COMPARISON: Prior mammograms from 04/29/2020 and 04/28/2019. TECHNIQUE: 2D and 3D bilateral screening mammography was performed with CAD. FINDINGS: Both breasts remain heterogeneously dense, limiting the sensitivity of mammography. Intraparenchymal lymph nodes in the outer right breast appear stable. No spiculated mass or malignant-appearing microcalcifications are seen. The axillae are unremarkable. IMPRESSION: No mammographic features suspicious for malignancy are identified. ACR BI-RADS Category 2: Benign findings. Result letter will be mailed to the patient. Note: At least 10% of breast cancer is not imaged by mammography. Dictated by: Dictated on workstation # [id number]
== END ==
LOC: RAD 15:45
PROVIDERS: ATTEND Physician Assistant
DX: Z12.31 Encounter for screening mammogram for malignant neoplasm of breast (principal)
CPT/HCPCS: 77063; 77067

== ENCOUNTER → 2022-05-21 | Outpatient (CLI) | payer BC ==
--- NOTE | 2022-05-22 08:24 | Diagnostic Imaging Report ---
3-D bilateral screening mammogram with CAD. CAD is utilized. The current study was also evaluated with a Computer Aided Detection (CAD) system. This study was compared to the prior exams of 05/09/2020, 04/29/2020 and 04/28/2019. At this time there are no current complaints. By history, in the interval since the prior exam the patient has undergone bilateral reduction mammoplasty. Both breasts do appear much smaller than on the prior study. The fibroglandular tissue in both breasts is heterogeneously dense. This does limit the sensitivity of this exam. There is a prominent area of architectural distortion deep in the lateral aspect of the left breast on the tomographic images. I suspect that this is related to scar formation from the interval reduction mammoplasty procedure. Even so, I would recommend that a compression/magnification view of this area be obtained in the CC, XCC and MLO projections for further study. A true lateral view of the left breast should also be performed. Ultrasound of this area should be obtained as well. There is no primary or secondary sign of malignancy noted. IMPRESSION: 1. There are postsurgical changes consistent with an interval bilateral reduction mammoplasty. 2. The area of architectural distortion deep in the lateral aspect of the left breast is more likely due to scar formation from the reduction mammoplasty procedure than to neoplasm. Even so, additional mammographic views and ultrasound of this area would be recommended. ACR BI-RADS Category 0: Incomplete. (Needs additional imaging evaluation). Result letter will be mailed to the patient. Note: At least 10% of breast cancer is not imaged by mammography. Dictated by: Dictated on workstation # [id number]
== END ==
LOC: RAD 15:30
PROVIDERS: ATTEND Physician Assistant
DX: Z12.31 Encounter for screening mammogram for malignant neoplasm of breast (principal); R92.8 Other abnormal and inconclusive findings on diagnostic imaging of breast; Z98.890 Other specified postprocedural states
CPT/HCPCS: 77063; 77067

== ENCOUNTER → 2022-06-11 | Outpatient (CLI) | payer BC ==
--- NOTE | 2022-06-11 11:13 | Diagnostic Imaging Report ---
INDICATION: Left breast architectural distortion. PROCEDURE: The patient presents for additional views. CORRELATION is made with recent screening study from 05/21/2022. TECHNIQUE: Unilateral left 2-D and 3-D diagnostic mammography was performed. This included exaggerated CC, spot compression CC, spot compression ML, as well as conventional 90 degree lateral view. FINDINGS: There is some residual density in the outer left breast posterior depth approximately 9 cm from the nipple. This has the appearance of scar formation from reduction mammoplasty. No discrete mass is identified. No suspicious microcalcifications are seen. IMPRESSION: BI-RADS Category 0 No suspicious mammographic findings are seen however there is some residual density in the far lateral and posterior left breast, likely scar formation. Further evaluation of this area with ultrasound is recommended and will be performed today. ACR BI-RADS Category 0: Incomplete. (Needs additional imaging evaluation). Result letter will be mailed to the patient. Note: At least 10% of breast cancer is not imaged by mammography. Dictated by: Dictated on workstation # [id number]
--- NOTE | 2022-06-11 11:25 | Diagnostic Imaging Report ---
Indication: Left breast density. Correlation is made with diagnostic mammogram earlier the same day as well as the screening mammogram from 05/21/2022. Sonographic interrogation of the entire outer left breast was performed. No sonographic abnormality is detected. No solid or cystic mass is detected. IMPRESSION: BI-RADS Category 1 No sonographic abnormality is detected. Patient may return to routine annual screening mammography. ACR BI-RADS Category 1: Negative. Result letter will be mailed to the patient. Note: At least 10% of breast cancer is not imaged by mammography. Dictated by: Dictated on workstation # [id number]
== END ==
LOC: RAD 09:45
PROVIDERS: ATTEND Physician Assistant
DX: N64.89 Other specified disorders of breast (principal)
CPT/HCPCS: 76642; 77065; G0279

== ENCOUNTER → 2023-07-16 | Outpatient (CLI) | payer BC ==
--- NOTE | 2023-07-16 20:55 | Diagnostic Imaging Report ---
INDICATION: Routine screening Comparison is made with prior mammogram from 05/21/2022 and 05/09/2021. 2-D and 3-D bilateral screening mammography was performed with CAD. Scattered fibroglandular densities are identified bilaterally. Circumscribed nodule in the left breast posterior depth appears stable. No new mass or malignant-appearing microcalcifications are seen. Axillae are unremarkable. IMPRESSION: No mammographic features suspicious for malignancy are identified. ACR BI-RADS Category 2: Benign findings. Result letter will be mailed to the patient. Note: At least 10% of breast cancer is not imaged by mammography. BI-RADS Category 2 Dictated by: Dictated on workstation # [id number]
== END ==
LOC: RAD 14:45
PROVIDERS: ATTEND Nurse Practitioner Family
DX: Z12.31 Encounter for screening mammogram for malignant neoplasm of breast (principal)
CPT/HCPCS: 77063; 77067